=== PATIENT | male | born 1970 | race Caucasian/White ===

== ENCOUNTER → 2018-09-24 13:21 | Outpatient (CLI) | payer MEDICAID, SELFPAY ==
[2018-09-24 14:31] LABS: Basophils # 0.1 K/mm3 (0-0.2); Eosinophils # 0.1 K/mm3 (0.0-0.4); Monocytes # 0.4 K/mm3 (0.1-1.0); Monocytes % 5.8 % (1.7-9.3)
[2018-09-24 14:37] LABS: Basophils % 0.9 % (0.1-2.0); Eosinophils % 1.7 % (0.1-12.0); Lymphocytes # 1.7 K/mm3 (0.7-4.5); Lymphocytes % 22.5 K/mm3 (10-50); Mean Corpuscular HGB Conc 30.6 g/dL (31.8-35.4); Mean Corpuscular Hemoglobin 28.6 pg (27.0-31.2); Mean Corpuscular Volume 93.4 fl (80-94); Mean Platelet Volume 8.3 fl (7.4-10.4); Neutrophils # 5.2 K/mm3 (1.8-7.8); Neutrophils % 69.2 % (37.0-80.0); Platelet Count 239 K/mm3 (142-424); Red Blood Count 6.63 M/mm3 (4.60-6.20); Red Cell Distribution Width 14.8 % (11.5-17.5); White Blood Count 7.6 K/mm3 (4.8-10.8)
[2018-09-24 14:43] LABS: Alanine Aminotransferase 21 U/L (12-78); Albumin Level 3.9 gm/dL (3.4-5.0); Albumin/Globulin Ratio 1.2 (1.1-1.8); Alkaline Phosphatase 98 U/L (46-116); Anion Gap 11.5 mEq/L (5-15); Aspartate Amino Transferase 19 U/L (15-37); Bilirubin,Total 0.4 mg/dL (0.2-1.0); Blood Urea Nitrogen 8 mg/dL (7-18); Calcium 8.7 mg/dL (8.5-10.1); Carbon Dioxide 31 mmol/L (21.0-32.0); Chloride 107 mmol/L (98-107); Cholesterol 112 mg/dL (140-200); Creatinine,Serum 0.92 mg/dL (0.70-1.30); Estimated Glomerular Filt Rate 88 ml/min (>60); GFR (African American) 106 ML/MIN (>60); Globulin 3.2 gm/dl (1.3-3.2); Glucose 95 mg/dL (74-106); Potassium 4.5 mmoL/L (3.5-5.1); Sodium 145 mmol/L (136-145); Total Protein,Serum 7.1 gm/dL (6.4-8.2); Triglycerides 78 mg/dL (30-200); VLDL Cholesterol 16 mg/dL (0-40)
[2018-09-24 15:06] LABS: Hemoglobin 18.9 g/dL (14.1-18.0)
[2018-09-24 15:13] LABS: Chol/HDL Ratio 2.7 (1-3.5); Free T4 (Free Thyroxine) 1.09 ng/dl (0.76-1.46); HDL Cholesterol 42 mg/dL (27-67); LDL Cholesterol 54 mg/dL (0-130); Thyroid Stimulating Hormone 1.43 uIU/ml (0.358-3.740)
[2018-09-24 15:42] LABS: Hematocrit 61.9 % (42.0-52.0)
[2018-09-25 10:12] LABS: Hep A Ab, IgM Negative (Negative); Hepatitis B Core Antibody IgM Negative (Negative); Hepatitis B Surface Antigen Negative (Negative)
[2018-09-25 18:44] LABS: Hepatitis C Antibody <0.1 s/co ratio (0.0-0.9)
== END ==
PROVIDERS: PCP Emergency Medicine; Visit Provider Emergency Medicine
DX: R25.1 Tremor, unspecified (principal)
CPT/HCPCS: 80053; 80061; 80074; 84439; 84443; 85025

== ENCOUNTER → 2018-09-27 14:29 | Outpatient (CLI) | payer MEDICAID, SELFPAY ==
[2018-09-27 15:07] LABS: Basophils # 0.1 K/mm3 (0-0.2); Basophils % 0.6 % (0.1-2.0); Eosinophils # 0.1 K/mm3 (0.0-0.4); Eosinophils % 0.7 % (0.1-12.0); Hematocrit 57.2 % (42.0-52.0); Hemoglobin 17.8 g/dL (14.1-18.0); Lymphocytes # 2.1 K/mm3 (0.7-4.5); Lymphocytes % 25.1 K/mm3 (10-50); Mean Corpuscular HGB Conc 31.2 g/dL (31.8-35.4); Mean Corpuscular Hemoglobin 28.4 pg (27.0-31.2); Mean Corpuscular Volume 91.2 fl (80-94); Mean Platelet Volume 7.2 fl (7.4-10.4); Monocytes # 0.4 K/mm3 (0.1-1.0); Monocytes % 5.2 % (1.7-9.3); Neutrophils # 5.6 K/mm3 (1.8-7.8); Neutrophils % 68.4 % (37.0-80.0); Platelet Count 227 K/mm3 (142-424); Red Blood Count 6.27 M/mm3 (4.60-6.20); Red Cell Distribution Width 14.6 % (11.5-17.5); White Blood Count 8.2 K/mm3 (4.8-10.8)
== END ==
PROVIDERS: Visit Provider Surgery
DX: K46.9 Unspecified abdominal hernia without obstruction or gangrene (principal)
CPT/HCPCS: 36415; 85025; 93005

== ENCOUNTER → 2019-01-13 08:45 | Outpatient (CLI) | payer MEDICAID, SELFPAY ==
--- NOTE | 2019-01-13 08:47 | MR_ITS ---
MR head/brain wo/w con HISTORY: Intermittent blurred vision with memory loss and tremor, history of skull fracture with intracranial hemorrhage ITS.REASON: tremor, shaking ORDERING PHYSICIAN: Rhiannon Mxion MD PATIENT AGE: 49 years Comparison: None TECHNIQUE: Standard multiplanar multiecho sequences are performed without and with gadolinium enhancement. 17 mL of ProHance given IV. FINDINGS: There is a caval septum lucidum is a normal variant. Encephalomalacic changes are present in the right occipital lobe and the temporal occipital junction. No midline shift, mass effect, intracranial hemorrhage, or hydrocephalus is evident. There is normal dai-white matter differentiation. No enhancing lesions are evident. The cerebellopontine angle, cerebellum, and brainstem are unremarkable. No pituitary mass. Optic chiasm, corpus callosum, and craniocervical junction have an unremarkable appearance. Upper cervical cord is unremarkable. The hippocampal GI right are unremarkable in the temporal horns are symmetric. No mastoid effusion or sinus air-fluid level. No acute calvarial abnormality. IMPRESSION: 1. No acute intracranial findings. 2. Encephalomalacia change in the right occipital lobe and occipital temporal region.
--- NOTE | 2019-01-13 09:42 | HMH.ITSHM ---
Current Home Medications as stated by this patient Tyrone Costa or billing representative. []propranolol
== END ==
PROVIDERS: PCP Emergency Medicine; Visit Provider Specialist
DX: D75.1 Secondary polycythemia (principal); R25.1 Tremor, unspecified; S06.9X1S Unspecified intracranial injury with loss of consciousness of 30 minutes or less, sequela
CPT/HCPCS: 70553; A9576

== ENCOUNTER → 2019-01-20 10:47 | Outpatient (CLI) | payer MEDICAID, SELFPAY ==
--- NOTE | 2019-01-20 10:53 | XR_ITS ---
XR chest 2V HISTORY: Shortness of breath, cough, smoker ITS.REASON: H/O TOBACCO USE,SOB ORDERING PHYSICIAN: Catarina Dunne MD PATIENT AGE: 49 years COMPARISON: None FINDINGS: The cardiomediastinal silhouette and pulmonary vascularity are within normal limits. The lungs are clear without infiltrates, suspicious nodules, or pleural effusions. There is calcified granuloma in the right lower lobe. Degenerative changes are present in the midthoracic spine. IMPRESSION: No acute finding
[2019-01-20 11:12] LABS: Microscopic, Urine URINE MICROSCOPIC (MICROSCOPIC)
[2019-01-20 11:32] LABS: Appearance,Urine CLEAR (Clear); Bilirubin,Urine Negative (Negative); Blood, Urine Negative (Negative); Color,Urine YELLOW (Yellow); Glucose,Urine (UA) Negative (Negative); Ketones,Urine Negative (Negative); Leukocyte Esterase,Urine Negative (Negative); Nitrate,Urine Negative (Negative); PH,Urine 5.5 (5.0-8.5); Protein,Urine Negative (Negative); Specific Gravity, Urine <= 1.005 (1.005-1.030); Urobilinogen,Urine 0.2 EU/dl (0.2)
[2019-01-20 11:35] LABS: Basophils # 0.1 K/mm3 (0-0.2); Basophils % 1.2 % (0.1-2.0); Eosinophils # 0.2 K/mm3 (0.0-0.4); Eosinophils % 2.3 % (0.1-12.0); Hematocrit 56.1 % (42.0-52.0); Lymphocytes # 2.4 K/mm3 (0.7-4.5); Lymphocytes % 32.4 % (10-50); Mean Corpuscular HGB Conc 32.2 g/dL (31.8-35.4); Mean Corpuscular Hemoglobin 29.8 pg (27.0-31.2); Mean Corpuscular Volume 92.7 fl (80-94); Mean Platelet Volume 6.8 fl (7.4-10.4); Monocytes # 0.6 K/mm3 (0.1-1.0); Monocytes % 7.7 % (1.7-9.3); Neutrophils # 4.2 K/mm3 (1.8-7.8); Neutrophils % 56.5 % (37.0-80.0); Platelet Count 242 K/mm3 (142-424); Red Blood Count 6.05 M/mm3 (4.60-6.20); Red Cell Distribution Width 14.8 % (11.5-17.5); White Blood Count 7.4 K/mm3 (4.8-10.8)
[2019-01-20 11:43] LABS: Bacteria,Urine Trace /lpf; Squamous Epithelial Cell,Urine Occasional #/hpf (0-5)
[2019-01-20 12:41] LABS: Alanine Aminotransferase 24 U/L (12-78); Albumin Level 3.8 gm/dL (3.4-5.0); Albumin/Globulin Ratio 1.2 (1.1-1.8); Alkaline Phosphatase 101 U/L (46-116); Anion Gap 12.5 mEq/L (5-15); Aspartate Amino Transferase 15 U/L (15-37); Bilirubin,Total 0.5 mg/dL (0.2-1.0); Blood Urea Nitrogen 15 mg/dL (7-18); Calcium 8.9 mg/dL (8.5-10.1); Carbon Dioxide 30 mmol/L (21.0-32.0); Chloride 105 mmol/L (98-107); Creatinine,Serum 0.99 mg/dL (0.70-1.30); Estimated Glomerular Filt Rate 80 ml/min (>60); GFR (African American) 97 ML/MIN (>60); Globulin 3.1 gm/dl (1.3-3.2); Glucose 102 mg/dL (74-106); Potassium 4.5 mmoL/L (3.5-5.1); Sodium 143 mmol/L (136-145); Total Protein,Serum 6.9 gm/dL (6.4-8.2)
[2019-01-21 12:36] LABS: Ceruloplasmin 20.1 mg/dL (16.0-31.0); Vitamin B12 319 pg/mL (232-1245)
[2019-01-21 17:40] LABS: Erythropoietin 9.8 mIU/mL (2.6-18.5)
== END ==
PROVIDERS: PCP Emergency Medicine; Referring Provider Specialist; Visit Provider Internal Medicine Medical Oncology
DX: D75.1 Secondary polycythemia (principal); R39.89 Other symptoms and signs involving the genitourinary system; R25.1 Tremor, unspecified; S06.9X1S Unspecified intracranial injury with loss of consciousness of 30 minutes or less, sequela
CPT/HCPCS: 36415; 71046; 80053; 81001; 81270; 82390; 82607; 82668; 85025

== ENCOUNTER → 2020-01-11 17:56 | Outpatient (CLI) | payer OTHER, SELFPAY ==
[2020-01-11 18:22] LABS: Basophils # 0.1 K/mm3 (0-0.2); Basophils % 0.7 % (0.1-2.0); Eosinophils # 0.1 K/mm3 (0.0-0.4); Eosinophils % 1.5 % (0.1-12.0); Hematocrit 54.8 % (42.0-52.0); Hemoglobin 17.5 g/dL (14.1-18.0); Lymphocytes # 2.8 K/mm3 (0.7-4.5); Lymphocytes % 29.8 % (10-50); Mean Corpuscular HGB Conc 31.9 g/dL (31.8-35.4); Mean Corpuscular Hemoglobin 28.5 pg (27.0-31.2); Mean Corpuscular Volume 89.3 fl (80-94); Mean Platelet Volume 8.6 fl (7.4-10.4); Monocytes # 0.6 K/mm3 (0.1-1.0); Monocytes % 6.6 % (1.7-9.3); Neutrophils # 5.7 K/mm3 (1.8-7.8); Neutrophils % 61.4 % (37.0-80.0); Platelet Count 255 K/mm3 (142-424); Red Blood Count 6.13 M/mm3 (4.60-6.20); Red Cell Distribution Width 14.6 % (11.5-17.5); White Blood Count 9.3 K/mm3 (4.8-10.8)
[2020-01-11 18:37] LABS: Chloride 105 mmol/L (98-107)
[2020-01-11 18:38] LABS: Potassium 4.4 mmoL/L (3.5-5.1); Sodium 140 mmol/L (136-145)
[2020-01-11 18:40] LABS: Alanine Aminotransferase 23 U/L (12-78); Alkaline Phosphatase 55 U/L (38-126); Aspartate Amino Transferase 36 U/L (17-59); Bilirubin,Total 0.3 mg/dl (0.2-1.3); Blood Urea Nitrogen 13 mg/dl (9-20); Estimated Glomerular Filt Rate 90 ml/min (>60); GFR (African American) 109 ML/MIN (>60)
[2020-01-11 18:41] LABS: Albumin Level 4.2 g/dl (3.5-5.0); Albumin/Globulin Ratio 1.7 (1.1-1.8); Anion Gap 13.4 mEq/L (5-15); Calcium 9.3 mg/dl (8.4-10.2); Carbon Dioxide 26 mmol/L (22.0-30.0); Chol/HDL Ratio 2.3 (1-3.5); Cholesterol 101 mg/dl (140-200); Globulin 2.5 g/dL (1.3-3.2); Glucose 88 mg/dl (74-100); HDL Cholesterol 44 mg/dl (40-60); Total Protein,Serum 6.7 g/dl (6.3-8.2); Triglycerides 91 mg/dl (30-150); VLDL Cholesterol 18 mg/dL (0-40)
[2020-01-11 18:52] LABS: Direct LDL Cholesterol 34.87 mg/dL (100-129)
[2020-01-11 18:58] LABS: Free T4 (Free Thyroxine) 1.24 ng/dl (0.78-2.19)
[2020-01-11 19:12] LABS: Thyroid Stimulating Hormone 2.35 uIU/mL (0.465-4.68)
[2020-01-11 21:22] LABS: Erythrocyte Sedimentation Rate 12 mm/hr (0-15)
[2020-01-13 12:02] LABS: Vitamin D 25 Hydroxy 30.8 ng/mL (30.0-100.0)
== END ==
PROVIDERS: Visit Provider Emergency Medicine
DX: R53.83 Other fatigue (principal)
CPT/HCPCS: 80053; 80061; 82652; 84439; 84443; 85025; 85651

== ENCOUNTER → 2021-08-20 17:49 | Outpatient (CLI) | payer OTHER, SELFPAY ==
[2021-08-20 18:33] LABS: Basophils # 0.1 K/mm3 (0-0.2); Eosinophils # 0.2 K/mm3 (0.0-0.4); Eosinophils % 2.4 % (0.1-12.0); Monocytes # 0.5 K/mm3 (0.1-1.0)
[2021-08-20 18:37] LABS: Alanine Aminotransferase 29 U/L (12-78); Albumin Level 4.3 g/dl (3.5-5.0); Albumin/Globulin Ratio 1.6 (1.1-1.8); Alkaline Phosphatase 76 U/L (38-126); Anion Gap 12.7 mEq/L (5-15); Aspartate Amino Transferase 30 U/L (17-59); Bilirubin,Total 0.4 mg/dl (0.2-1.3); Blood Urea Nitrogen 10 mg/dl (9-20); Calcium 9.1 mg/dl (8.4-10.2); Carbon Dioxide 23 mmol/L (22.0-30.0); Chloride 108 mmol/L (98-107); Chol/HDL Ratio 2.8 (1-3.5); Cholesterol 131 mg/dl (140-200); Estimated Glomerular Filt Rate 119 ml/min (>60); GFR (African American) 144 ML/MIN (>60); Globulin 2.7 g/dL (1.3-3.2); Glucose 95 mg/dl (74-100); HDL Cholesterol 47 mg/dl (40-60); Potassium 4.7 mmoL/L (3.5-5.1); Sodium 139 mmol/L (136-145); Triglycerides 86 mg/dl (30-150); VLDL Cholesterol 17 mg/dL (0-40)
[2021-08-20 18:48] LABS: Basophils % 1.2 % (0.1-2.0); Direct LDL Cholesterol 47.75 mg/dL (100-129); Hematocrit 58.1 % (42.0-52.0); Lymphocytes # 2.1 K/mm3 (0.7-4.5); Lymphocytes % 26.4 % (10-50); Mean Corpuscular HGB Conc 31.6 g/dL (31.8-35.4); Mean Corpuscular Hemoglobin 29.1 pg (27.0-31.2); Mean Corpuscular Volume 92.1 fl (80-94); Monocytes % 6.2 % (1.7-9.3); Neutrophils % 63.7 % (37.0-80.0); Platelet Count 314 K/mm3 (142-424); Red Blood Count 6.31 M/mm3 (4.60-6.20); Red Cell Distribution Width 15.3 % (11.5-17.5); White Blood Count 7.8 K/mm3 (4.8-10.8)
[2021-08-20 18:54] LABS: 25-OH Vitamin D, Total 52.6 ng/mL (30-100)
[2021-08-20 19:02] LABS: Hemoglobin 18.4 g/dL (14.1-18.0)
[2021-08-20 19:29] LABS: Free T4 (Free Thyroxine) 1.07 ng/dl (0.78-2.19)
[2021-08-20 20:16] LABS: Erythrocyte Sedimentation Rate 1 mm/hr (0-20)
[2021-08-22 09:19] LABS: HIV Screen 4th Generation wRfx Non Reactive (Non Reactive)
[2021-08-22 11:12] LABS: Hep A Ab, IgM Negative (Negative); Hep A Ab, Total Positive (Negative); Hep B Core Ab, Total Negative (Negative); Hep B Surface Ab, Qual Non Reactive (.); Hepatitis B Surface Antigen Negative (Negative); Hepatitis C Antibody <0.1 s/co ratio (0.0-0.9)
[2021-08-23 04:14] LABS: ALT (SGPT) P5P 30 IU/L (0-55); Alpha 2-Macroglobulins, Qn 161 mg/dL (110-276); Apolipoprotein A-1 129 mg/dL (101-178); Bilirubin, Total 0.3 mg/dL (0.0-1.2); GGT 21 IU/L (0-65); Haptoglobin 193 mg/dL (29-370); Necroinflammat Activity Grade A0-No activity (.); Necroinflammat Activity Score 0.11 (0.00-0.17)
== END ==
PROVIDERS: Visit Provider Emergency Medicine
DX: B15.9 Hepatitis A without hepatic coma (principal); Z11.4 Encounter for screening for human immunodeficiency virus [HIV]; R53.83 Other fatigue; E55.9 Vitamin D deficiency, unspecified
CPT/HCPCS: 80053; 80061; 81596; 82306; 84439; 84443; 85025; 85651; 86703; 86704; 86706; 86708; 87340; 87380; 87522; G0432

== ENCOUNTER → 2021-09-06 09:08 | Outpatient (CLI) | payer OTHER, SELFPAY ==
--- NOTE | 2021-09-06 09:15 | XR_ITS ---
PROCEDURE: XR SHOULDER RT MIN 2V CLINICAL INDICATION: RT shoulder pain COMPARISON: No exams were available for comparison FINDINGS: No fracture or dislocation. No lytic or blastic change. There is normal mineralization. There are osteoarthritic changes at the AC joint with a small spur projecting along the inferior surface of the distal acromion. Osteoarthritic changes are also present at the glenohumeral joint with high-riding humeral head and subacromial stenosis Other findings:None. IMPRESSION: Osteoarthritis with subacromial stenosis Dictated by: Pascual Oliver MD 09/06/2021 13:40 Pascual Oliver MD in [place] 09/06/2021 13:40
== END ==
PROVIDERS: PCP Emergency Medicine; Visit Provider Orthopaedic Surgery
DX: M25.511 Pain in right shoulder (principal)
CPT/HCPCS: 73030

== ENCOUNTER → 2021-10-09 16:00 | Outpatient (CLI) | payer OTHER, SELFPAY ==
--- NOTE | 2021-10-09 16:07 | MR_ITS ---
PROCEDURE: MR CERVICAL SPINE WO CON CLINICAL INDICATION: neck pain Neck pain and right arm pain COMPARISON: No exams were available for comparison TECHNIQUE: Standard multiplanar multiecho sequences are performed without contrast. 3-D MIP and myelographic images are also rendered and reviewed FINDINGS: There is normal alignment. Craniocervical junction has an unremarkable appearance. There is straightening of the cervical lordosis which could be due to patient positioning or muscle spasm. C2-C3: Degenerative disc disease with right-sided uncovertebral hypertrophy with right lateral recess and moderate right foraminal narrowing. C3-C4: Degenerative disc disease with small right paracentral and left paracentral disc osteophyte complexes at the uncovertebral region causing moderate bilateral lateral recess narrowing and severe bilateral foraminal narrowing. Canal stenosis of 9 mm is present at this level with minimal impingement upon the cord anteriorly. C4-C5: Degenerative disc disease with endplate hypertrophic changes with broad-based disc osteophyte complex and small right paracentral/foraminal disc osteophyte complex at the uncovertebral region. There is resultant severe bilateral lateral recess narrowing slightly greater on the right secondary to the disc osteophyte complex. There is moderate bilateral foraminal narrowing and canal stenosis of 9 mm. There is minimal impingement upon the cord anteriorly C5-C6: Degenerative disc disease with a broad based central and left paracentral and foraminal and lateral disc osteophyte complex causing severe left-sided lateral recess narrowing and severe left foraminal narrowing with canal stenosis of 8 mm centrally and greater left laterally. [id number] impingement upon the cord anteriorly and on the left. Prominent anterior osteophytes are present also at this level. C6-C7: Degenerative disc disease with bulging disc with moderate to severe canal stenosis of 7 mm. There is impingement upon the cord anteriorly. There is moderate bilateral lateral recess narrowing and severe bilateral foraminal narrowing. C7-T1: Small central and right paracentral disc protrusion with canal stenosis of 9 mm. Mild bilateral foraminal narrowing. Type 1 endplate changes are present the at C4-C5 and C6-C7. There is increased T2 signal involving the pedicle on the left at C6 and C7 and the left aspect of the vertebral bodies at this area indicating bone marrow edema which may be related to the underlying discogenic disease. IMPRESSION: Abnormal MRI of the cervical spine with multilevel cervical spondylosis with resultant canal stenosis, lateral recess, and foraminal narrowing. Please see above for detailed description at each level. Dictated by: Pascual Oliver MD 10/11/2021 07:52 Pascual Oliver MD in [place] 10/11/2021 07:52
== END ==
PROVIDERS: PCP Emergency Medicine; Visit Provider Emergency Medicine
DX: M54.12 Radiculopathy, cervical region (principal)
CPT/HCPCS: 72141; 76376

== ENCOUNTER → 2021-11-04 18:47 | Outpatient (CLI) | payer OTHER, SELFPAY ==
[2021-11-04 18:50] LABS: Coronavirus 19, PCR Not Detected (NotDetected); Influenza A, PCR Not Detected (NotDetected); Influenza B, PCR Not Detected (NotDetected)
== END ==
PROVIDERS: Visit Provider Emergency Medicine
DX: Z20.822 Contact with and (suspected) exposure to COVID-19 (principal); J34.89 Other specified disorders of nose and nasal sinuses; R51.9 Headache, unspecified
CPT/HCPCS: C9803; U0003; U0005

== ENCOUNTER → 2022-02-13 14:06 | Outpatient (POV) | payer OTHER, SELFPAY ==
[2022-02-13 14:49] VITALS: BP 119/75; PULSE 63; RESP 18; TEMP 36.6; O2SAT 98; BMI 25.7
--- NOTE | 2022-02-13 15:48 | HMH.PAINSOAP ---
[facility] Pain Management SOAP Note Subjective:: Patient is a pleasant 52-year-old male who is here for medication refill and follow-up. Patient is currently being treated for degenerative disc disease of the lumbar spine with lumbar radiculopathy symptoms. Patient is being managed with Lyrica 75 mg 4 times a day and Oakfield 5 mg 4 times a day. Patient denies any side effects from the medications. Patient denies any changes to the location and type of pain. Patient states that this is adequately helping manage their pain. Rates pain as 6 out of 10. [facility] number [id number] with an active morphine equivalent 20. Drug screens have been reviewed and appropriate. We also recently tried a [employer] spinal cord stimulator with the patient. After the 1 week trial, patient had no relief of symptoms. We took out his leads on February 03, 2022. Review of Systems: General: No recent weight changes, no fever, no sleep disturbances Respiratory: No cough, no shortness of air, no recurring pulmonary infections Cardiovascular/peripheral vascular: No chest pain, no palpitations, no edema, no shortness of breath Gastrointestinal: No new onset incontinence, normal bowel movements reported Genitourinary: No new onset incontinence Musculoskeletal: Low back pain Psychiatric: [Normal mood/affect] Neurological: [Denies weakness in extremities], [denies balance issues] Objective:: Physical Exam: General: Alert and oriented x3, no acute distress, pleasant and cooperative, [on room air] Lungs: Respirations even and unlabored, symmetrical chest expansion Eyes: PERRL Musculoskeletal: Flexion and extension of lumbar [spine] somewhat guarded secondary to pain, [antalgic gait noted] Neurological: Speech clear, no gross sensory deficit Assessment:: Degenerative disc disease of lumbar spine with lumbar radiculopathy symptoms Plan:: We will continue the patient's Lyrica 75 mg 4 times a day and Oakfield 5 mg 4 times a day. We will provide the patient with 1 month of refills. We would like to see the patient back in 1 month for follow-up and reevaluation of chronic pain syndrome. Patient has been advised of risks of oversedation with the prescribed medication. Narcan has been offered to the patient in the event of oversedation. Patient has been advised that a family member should also be educated regarding administration of Narcan. Patient has been instructed to contact the clinic with any concerns before the next appointment. Dr. Becerril has reviewed this note and agrees with this plan of care. This note was dictated using voice recognition software and make contain errors or omissions. [facility] History Medical History: Reports:: Depression, Hiatal Hernia, Migraine Denies:: Cancer, Diabetes Mellitus Type 1, Diabetes Mellitus Type 2, Internal Pacemaker, MRSA, Seizures *Have you ever received a pneumonia vaccine?: No *Have you received a flu vaccine this season?: No Other Medical History: Reports: Arthritis, Other. Denies: Blood Transfusion Reaction Laterality Cases: Right: Arthroscopy Shoulder, Other Other Surgeries: Yes: No Previous Surgery, Hernia Repair, Other (hand, rotator cuff). No: Pacemaker Amputation: No Fractures: Yes (FRACTURED SKULL WITH 2 BLOOD CLOTS IN BRAIN) - *Social History Smoking Status: Current every day smoker Tobacco Type: cigarettes # Packs/Day (cigarettes): 1 #Yrs smoked (if former smoker): 41 Alcohol Intake: current Alcohol Intake Frequency:: holidays/special occasions only Substance Use Type: marijuana *Occupational Status:: other Housing: house Household Members: friend(s) *Travel in the last 8 weeks: None - Psychiatric History Pschychiatric History:: Reports:: Depression Family Hx:: Asthma, Cancer, Heart Attack
--- NOTE | 2022-02-13 15:54 | HMH.PMCON ---
Assessment and Plan (1) Degenerative disc disease, cervical Status: Acute Category: Medical Code(s): M50.30 - Other cervical disc degeneration, unspecified cervical region (2) Cervical radiculopathy Status: Acute Category: Medical Code(s): M54.12 - Radiculopathy, cervical region (3) Rotator cuff tear arthropathy of right shoulder Status: Acute Category: Medical Code(s): M75.101 - Unspecified rotator cuff tear or rupture of right shoulder, not specified as traumatic; M12.811 - Other specific arthropathies, not elsewhere classified, right shoulder - Assessment and plan all Dx Assessment and Plan for all problems:: CLINICAL INDICATION: neck pain Neck pain and right arm pain COMPARISON: No exams were available for comparison TECHNIQUE: Standard multiplanar multiecho sequences are performed without contrast. 3-D MIP and myelographic images are also rendered and reviewed FINDINGS: There is normal alignment. Craniocervical junction has an unremarkable appearance. There is straightening of the cervical lordosis which could be due to patient positioning or muscle spasm. C2-C3: Degenerative disc disease with right-sided uncovertebral hypertrophy with right lateral recess and moderate right foraminal narrowing. C3-C4: Degenerative disc disease with small right paracentral and left paracentral disc osteophyte complexes at the uncovertebral region causing moderate bilateral lateral recess narrowing and severe bilateral foraminal narrowing. Canal stenosis of 9 mm is present at this level with minimal impingement upon the cord anteriorly. C4-C5: Degenerative disc disease with endplate hypertrophic changes with broad-based disc osteophyte complex and small right paracentral/foraminal disc osteophyte complex at the uncovertebral region. There is resultant severe bilateral lateral recess narrowing slightly greater on the right secondary to the disc osteophyte complex. There is moderate bilateral foraminal narrowing and canal stenosis of 9 mm. There is minimal impingement upon the cord anteriorly C5-C6: Degenerative disc disease with a broad based central and left paracentral and foraminal and lateral disc osteophyte complex causing severe left-sided lateral recess narrowing and severe left foraminal narrowing with canal stenosis of 8 mm centrally and greater left laterally. [id number] impingement upon the cord anteriorly and on the left. Prominent anterior osteophytes are present also at this level. C6-C7: Degenerative disc disease with bulging disc with moderate to severe canal stenosis of 7 mm. There is impingement upon the cord anteriorly. There is moderate bilateral lateral recess narrowing and severe bilateral foraminal narrowing. C7-T1: Small central and right paracentral disc protrusion with canal stenosis of 9 mm. Mild bilateral foraminal narrowing. Type 1 endplate changes are present the at C4-C5 and C6-C7. There is increased T2 signal involving the pedicle on the left at C6 and C7 and the left aspect of the vertebral bodies at this area indicating bone marrow edema which may be related to the underlying discogenic disease. IMPRESSION: Abnormal MRI of the cervical spine with multilevel cervical spondylosis with resultant canal stenosis, lateral recess, and foraminal narrowing. Please see above for detailed description at each level. Dictated by: Pascual Oliver MD 10/11/2021 07:52 Pascual Oliver MD in [place] 10/11/2021 07:52 Patient's MRI shows multiple level cervical spondylosis and degenerative disc changes resulting into mild to moderate canal stenosis. Patient is also being followed by neurology and have been referred to neurosurgery for further evaluation. Patient has been referred to us for pain management. Patient has tried and failed conservative therapies such as oral medication, physical therapy, at home exercises for greater than 6 weeks. We will poly
== END ==
PROVIDERS: Visit Provider Student in an Organized Health Care Education/Training Program
DX: M50.10 Cervical disc disorder with radiculopathy, unspecified cervical region (principal); M75.101 Unspecified rotator cuff tear or rupture of right shoulder, not specified as traumatic
CPT/HCPCS: 99202; G0463

== ENCOUNTER 2022-02-28 11:59 | Day surgery (SDC) | payer OTHER, SELFPAY ==
[2022-02-28 12:24] VITALS: BP 125/77; BP 135/91; PULSE 74; PULSE 80; RESP 20; TEMP 36.6; O2SAT 99; BMI 25.9
--- NOTE | 2022-02-28 12:37 | HMH.PMPROC ---
- Procedure Date: 02/28/22 Time: 12:37 Anesthesiologist:: Tim Obrien CRNA Complications:: None Pre-procedure Diagnosis:: Degenerative disc disease cervical spine multilevels with radiculopathy to right shoulder. Post-procedure Diagnosis:: Same Indications for Procedure:: This patient is a pleasant 52-year-old male who has come to our clinic for chronic neck pain as well as upper right extremity pain. He has not had any cervical steroid injection in the past. He is status post rotator cuff repair in the right shoulder. This was done several years ago. He is continuing to have pain in the neck as well as the right shoulder. Procedure Details:: Procedure:Cervical epidural steroid injection Informed consent was obtained and the risks and benefits of the procedure were explained to the patient. The patient was taken to the procedure room and noninvasive monitors placed, including noninvasive blood pressure cuff and pulse oximeter. The neck was prepped using Betadine as a cleansing solution. The C6-C7 interspace was palpated. The skin and subcutaneous tissues were anesthetized using lidocaine 1.5% and a 25-gauge needle. After this an 18-gauge Touhy epidural needle was placed into the C6-C7 interspace and advanced using loss of resistance to air until the epidural space was encountered. After confirmation of needle placement in the epidural space, a solution containing lidocaine 1.5%, 4 mL and Depo-Medrol 80 mg was incrementally injected into the cervical epidural space.~ The patient tolerated the procedure well with no complications. The patient was observed in the Pain Clinic and then discharged home neurologically intact. Plan and Disposition:: Patient was discharged 30 minutes post procedure. No incident. No difficulty. He will return to see us in the clinic.
[2022-02-28 12:40] VITALS: BP 121/92; PULSE 65; RESP 18; O2SAT 98
== END 2022-02-28 12:41 | disposition home or self-care (01) ==
LOC: SC.PAINP 12:02
PROVIDERS: PCP Emergency Medicine; Visit Provider Nurse Anesthetist, Certified Registered
DX: M50.120 Mid-cervical disc disorder, unspecified level (principal); F32.A Depression, unspecified; G43.909 Migraine, unspecified, not intractable, without status migrainosus; M19.90 Unspecified osteoarthritis, unspecified site; Z79.899 Other long term (current) drug therapy
CPT/HCPCS: 62321; J1040

== ENCOUNTER → 2022-03-27 10:51 | Outpatient (POV) | payer OTHER, SELFPAY ==
[2022-03-27 11:57] VITALS: BP 142/73; PULSE 71; RESP 18; TEMP 36.1; O2SAT 96; BMI 25.7
--- NOTE | 2022-03-27 12:04 | HMH.PAINSOAP ---
[facility] Pain Management SOAP Note Subjective:: Patient is a pleasant 53-year-old male who presents today for follow-up after a cervical epidural steroid injection at C6-C7 on February 28, 2022. Patient is currently being managed for degenerative disc disease of the cervical spine and multiple levels with cervical radiculopathy symptoms, right shoulder pain, cervical facet arthropathy, cervical spinal canal stenosis. After the procedure, patient states that he had worsening symptoms for about a week. He also had a lot of pain during the injections. Today, patient states that he still have significant cervical pain that radiates to bilateral upper extremities. He is still being followed by Ortho for his right shoulder. When we last saw this patient, we refer the patient for neurosurgery. He has an appointment with them in the next couple of weeks. He rates his pain today as 8 out of 10. Review of Systems: General: No recent weight changes, no fever, no sleep disturbances Respiratory: No cough, no shortness of air, no recurring pulmonary infections Cardiovascular/peripheral vascular: No chest pain, no palpitations, no edema, no shortness of breath Gastrointestinal: No new onset incontinence, normal bowel movements reported Genitourinary: No new onset incontinence Musculoskeletal: Neck pain, right shoulder pain Psychiatric: [Normal mood/affect] Neurological: [Denies weakness in extremities], [denies balance issues] Objective:: Physical Exam: General: Alert and oriented x3, no acute distress, pleasant and cooperative Lungs: Respirations even and unlabored, symmetrical chest expansion Eyes: PERRL Musculoskeletal: Flexion and extension of cervical [spine] somewhat guarded secondary to pain, [antalgic gait noted]; limited range of motion of the right shoulder secondary to pain Neurological: Speech clear, no gross sensory deficit Assessment:: Degenerative disc disease of the cervical spine with cervical radiculopathy symptoms, cervical facet arthropathy, cervical spinal stenosis Plan:: Patient had minimal relief after the cervical epidural steroid injection. We will schedule the patient for a second cervical epidural steroid injection at C6-C7. Risks and benefits of the procedure have been explained to the patient. Patient would like to proceed with the procedure. Before his injections, I will write the patient hydroxyzine 50 mg 2 tablets that he can take 1 the night before the procedure and 1 in the morning of the procedure Patient has not any blood thinners. I urged the patient to keep his neurosurgery appointment. Patient has significant issues in his spine. Patient states that he will try his best to make it to his neurosurgery appointment. Patient has been instructed to contact the clinic with any concerns before the next appointment. Dr. Becerril has reviewed this note and agrees with this plan of care. This note was dictated using voice recognition software and make contain errors or omissions. [facility] History Medical History: Reports:: Depression, Hiatal Hernia, Migraine Denies:: Cancer, Diabetes Mellitus Type 1, Diabetes Mellitus Type 2, Internal Pacemaker, MRSA, Seizures *Have you ever received a pneumonia vaccine?: No *Have you received a flu vaccine this season?: Yes Other Medical History: Reports: Arthritis, Other. Denies: Blood Transfusion Reaction Laterality Cases: Right: Arthroscopy Shoulder, Other Other Surgeries: Yes: No Previous Surgery, Hernia Repair, Other (hand, rotator cuff). No: Pacemaker Amputation: No Fractures: Yes (FRACTURED SKULL WITH 2 BLOOD CLOTS IN BRAIN) - *Social History Smoking Status: Current every day smoker Tobacco Type: cigarettes # Packs/Day (cigarettes): 1 #Yrs smoked (if former smoker): 41 Alcohol Intake: current Alcohol Intake Frequency:: holidays/special occasions only Substance Use Type: marijuana *Occupational Status:: employed Housing: house Household Members: friend(s) *Travel in the [facility]
== END ==
PROVIDERS: Visit Provider Student in an Organized Health Care Education/Training Program
DX: M50.10 Cervical disc disorder with radiculopathy, unspecified cervical region (principal); M48.02 Spinal stenosis, cervical region; M47.892 Other spondylosis, cervical region
CPT/HCPCS: 99212; G0463

== ENCOUNTER 2022-04-18 09:52 | Day surgery (SDC) | payer OTHER, SELFPAY ==
[2022-04-18 10:04] VITALS: BP 119/79; PULSE 74; RESP 20; TEMP 36.6; O2SAT 98; BMI 25.1
[2022-04-18 10:28] VITALS: BP 118/67; PULSE 77; RESP 18; O2SAT 96
[2022-04-18 10:29] VITALS: BP 116/70; PULSE 76; RESP 18; O2SAT 96
--- NOTE | 2022-04-18 10:40 | HMH.PMPROC ---
- Procedure Date: 04/18/22 Time: 10:41 Anesthesiologist:: Emery Becerril MD Complications:: None Pre-procedure Diagnosis:: Degenerative disc disease of cervical spine with cervical radiculopathy and cervical spinal stenosis Post-procedure Diagnosis:: Same Indications for Procedure:: Patient is a pleasant 53-year-old white male who we have been treating for neck pain with cervical radicular symptoms. He did have a previous cervical epidural steroid injection in February which did not give him much relief of his pain symptoms. He does have an appointment with neurosurgery in the next few weeks. We will do a repeat cervical epidural steroid injection today to see if this will give him better relief of his pain symptoms. Procedure Details:: Cervical epidural steroid injection under fluoroscopy Informed consent was obtained and the risks and benefits of the procedure was explained to the patient. The patient was taken to the procedure room placed prone on the procedure table. The neck was prepped using ChloraPrep. The skin and subcutaneous tissues were anesthetized using lidocaine. I placed a 18-gauge epidural needle into the C5-C6 interspace and advanced using [id number] to air and fluoroscopic guidance. After confirmation of needle placement in the epidural space with dye, I injected 3 mL's lidocaine 1.5% and Depo-Medrol 80 mg. The patient tolerated the procedure well with no complications. Plan and Disposition:: We will follow-up with him in 2 weeks. Will reevaluate symptoms at that time. We will also follow-up on his appointment with neurosurgery.
[2022-04-18 10:51] VITALS: BP 127/79; PULSE 66; RESP 20; O2SAT 97
== END 2022-04-18 10:52 | disposition home or self-care (01) ==
LOC: SC.PAINP 09:53
PROVIDERS: PCP Emergency Medicine; Visit Provider Anesthesiology
DX: M50.122 Cervical disc disorder at C5-C6 level with radiculopathy (principal); M48.02 Spinal stenosis, cervical region; F32.A Depression, unspecified; G43.909 Migraine, unspecified, not intractable, without status migrainosus; M19.90 Unspecified osteoarthritis, unspecified site; Z72.0 Tobacco use; F12.90 Cannabis use, unspecified, uncomplicated
CPT/HCPCS: 62321; J1040; Q9966

== ENCOUNTER → 2022-05-05 11:10 | Outpatient (POV) | payer OTHER, SELFPAY ==
[2022-05-05 12:01] VITALS: BP 113/77; PULSE 68; RESP 18; TEMP 36.4; O2SAT 98; BMI 25.1
--- NOTE | 2022-05-05 12:50 | HMH.PAINSOAP ---
[facility] Pain Management SOAP Note Subjective:: Patient is a pleasant 53-year-old male who presents today for follow-up after a cervical epidural steroid injection on April 18, 2022. Patient is current being treated for degenerative disc disease of the cervical spine, cervical radiculopathy, cervical spinal stenosis. After the procedure, patient had significant relief for a few hours but states that his pain got worse after 24 hours. Pain is worse with cervical flexion, extension, and rotation. This is the patient's second cervical epidural steroid injection that provided 70-80% for less than 24 hours. He was supposed to see Neurosurgery but he had to reschedule it because of transportation issues. He is rescheduled to see them in May. Rates pain today as 810. He is prescribed Bison 5mg QID and Gabapentin 600mg TID by Dr. Reyes. Andrés [id number], MEQ 0. Review of Systems: General: No recent weight changes, no fever, no sleep disturbances Respiratory: No cough, no shortness of air, no recurring pulmonary infections Cardiovascular/peripheral vascular: No chest pain, no palpitations, no edema, no shortness of breath Gastrointestinal: No new onset incontinence, normal bowel movements reported Genitourinary: No new onset incontinence Musculoskeletal: Neck pain Psychiatric: [Normal mood/affect] Neurological: [Denies weakness in extremities], [denies balance issues] Objective:: Physical Exam: General: Alert and oriented x3, no acute distress, pleasant and cooperative Lungs: Respirations even and unlabored, symmetrical chest expansion Eyes: PERRL Musculoskeletal: Flexion and extension of cervical [spine] somewhat guarded secondary to pain, [antalgic gait noted] Neurological: Speech clear, no gross sensory deficit Assessment:: Degenerative disc disease of the cervical spine with cervical radiculopathy, cervical spinal stenosis Plan:: Patient had significant relief for less than 24 hours after 2 cervical epidural steroid injection. I discussed with the patient that he is a good candidate for spinal cord stimulator therapy. I provided the patient information regarding this procedure. He was supposed to see neurosurgery couple weeks ago but he had to reschedule this appointment because of transportation issues. He is scheduled to see them again in May. I would like to see the patient back at the beginning of June after his appointment with neurosurgery. I am also ordering an updated cervical MRI before his appointment with neurosurgery. Patient is to take this disc at his appointment. I will start the pt on Tizanidine 4mg TID to help with some of his neck pain. Patient has been instructed to contact the clinic with any concerns before the next appointment. Dr. Becerril has reviewed this note and agrees with this plan of care. This note was dictated using voice recognition software and make contain errors or omissions. [facility] History Medical History: Reports:: Depression, Hiatal Hernia, Hyperlipidemia, Hypertension, Migraine Denies:: Cancer, Diabetes Mellitus Type 1, Diabetes Mellitus Type 2, Internal Pacemaker, MRSA, Seizures *Have you ever received a pneumonia vaccine?: No *Have you received a flu vaccine this season?: No Other Medical History: Reports: Arthritis, Other. Denies: Blood Transfusion Reaction Laterality Cases: Right: Arthroscopy Shoulder, Other Other Surgeries: Yes: No Previous Surgery, Hernia Repair, Other (hand, rotator cuff). No: Pacemaker Amputation: No Fractures: Yes (FRACTURED SKULL WITH 2 BLOOD CLOTS IN BRAIN) - *Social History Smoking Status: Current every day smoker Tobacco Type: cigarettes # Packs/Day (cigarettes): 1 #Yrs smoked (if former smoker): 41 Alcohol Intake: never Alcohol Intake Frequency:: holidays/special occasions only Substance Use Type: marijuana *Occupational Status:: other Housing: house Household Members: friend(s) *Travel in the last 8 weeks: None - Psychiatric History Pschychiatric History:: Ritesh
== END ==
PROVIDERS: Visit Provider Student in an Organized Health Care Education/Training Program
DX: M50.10 Cervical disc disorder with radiculopathy, unspecified cervical region (principal); M48.02 Spinal stenosis, cervical region
CPT/HCPCS: 99212; G0463

== ENCOUNTER → 2022-05-08 11:29 | Outpatient (CLI) | payer OTHER, SELFPAY ==
--- NOTE | 2022-05-08 12:23 | MR_ITS ---
FINAL REPORT CLINICAL HISTORY: NECK PAIN neck pain , right sided shoulder and arm pain x 2 months headaches COMPARISON: October 09, 2021 FINDINGS: Multiplanar MR imaging of the cervical spine was performed without contrast. On the sagittal T2-weighted images, disc degeneration is seen throughout. There is straightening of the cervical spine. There is abnormal signal in the C6 vertebral body. This is worse than the prior exam of uncertain etiology, question reaction edema? There is no evidence of fracture. The vertebral alignment is normal. The cervical spinal cord has an unremarkable appearance without evidence of mass, edema or syrinx. No significant canal stenosis is identified. The cervicomedullary junction is normal. C2-3: An annular bulge is present. Bilateral uncovertebral osteophytes are present. There is moderate right neural foraminal narrowing. C3-4: A disc osteophyte complex is present. There is severe bilateral neural foraminal narrowing. C4-5: A disc osteophyte complex is present. There is severe bilateral neural foraminal narrowing. There is mild central canal stenosis with an AP diameter of the thecal sac of 8 mm. C5-6: A disc osteophyte complex is present. There is a left paracentral disc protrusion. There is severe left neural foraminal narrowing. There is a probable L6 nerve root impingement. C6-7: A disc osteophyte complex is present. There is moderate right and severe left neural foraminal narrowing. There is mild central canal stenosis with an AP diameter of the thecal sac of 8 mm. C7-T1: There is a right paracentral disc protrusion which indents the thecal sac. There is moderate right neural foraminal narrowing. IMPRESSION: Multilevel degenerative disc disease and spondylosis with areas of neural foraminal narrowing. Mild central canal stenosis at C4-5 and C6-7. Disc protrusions at C5-6 and C7-T1. Abnormal signal in the C6 vertebral body, worse. Question reaction edema? Reviewed, Interpreted and Dictated by Donta Galeano III, MD Transcribed by Candice Goldberg Authenticated and [facility]
== END ==
PROVIDERS: PCP Emergency Medicine; Visit Provider Student in an Organized Health Care Education/Training Program
DX: M54.2 Cervicalgia (principal)
CPT/HCPCS: 72141; 76376

== ENCOUNTER 2024-02-16 17:29 | Emergency (ER) | payer OTHER, SELFPAY ==
[2024-02-16 18:35] VITALS: BP 160/92; PULSE 85; RESP 18; TEMP 36.7; O2SAT 96; BMI 29.2
[2024-02-16 18:46] LABS: Coronavirus 19, PCR Not Detected (NotDetected); Influenza A, PCR Not Detected (NotDetected); Influenza B, PCR Not Detected (NotDetected)
--- NOTE | 2024-02-16 18:49 | EXP.UTC ---
Discharge Plan Disposition Patient Disposition: Home, Self-Care Condition: Good Prescriptions Prescriptions: New guaifenesin [Mucinex] 1,200 mg tablet extended release 12hr 1,200 mg PO Q12H PRN (Reason: cough/congestion) Qty: 20 0RF Referrals Follow up/Referrals: Mike Castro DO [Primary Care Provider] - See instructions Activity Restrictions/Add. Instructions Additional Instructions/Restrictions: *Monitor Temp, Over the counter Motrin or Tylenol as directed/as needed Tylenol every 4 hours and Motrin every 6 hours (as long as your family doctor has told you that you can take it) for fever or pain. and straight to ER if unable to lower temp less than 101.0 after medication given *Warm salt water gargles may help to soothe the throat *Throat Lozenges? *Warm fluids like tea with honey may help to soothe the throat? *Sleep elevated *Humidifier/Vaporizer Follow up IMMEDIATELY for new or worsening symptoms or no Noticeable improvement over the next 48-72 hours. 911 for difficulty breathing or swallowing You were tested for today for COVID19 your test result should be back in the next 24hours, you may check your results on the [facility] [employer] Health Portal Clinical Impressions Clinical Impression: Exposure to COVID-19 virus Instructions Patient Instructions: Cough, DI for COVID-19 (Suspected or Confirmed ) [place]charge ED Provider[place]ust[place] [facility] [place] General Stated complaint: cough,shortness of breath Mode of Arrival: Ambulatory Source of Information: Patient Limitations: No Limitations Time Seen by Provider: 02/16/24 18:49 Description of Symptoms (Recalled from Triage Doc. by RN): Pt's symptoms are productive cough, dry throat, and fatigued. He was exposed to covid. HEENT Symptoms (Recalled from RN notes): Yes Resp Symptoms (Recalled from RN notes): No Skin Symptoms (Recalled from RN notes): No MS Symptoms (Recalled from RN notes): No Functional Status (Recalled from RN notes): n/a History of Present Illness Provider Complaint: Patient states that he is an every day smoker, states that he has had a productive cough on and off for years States that he was recently around family that tested positive for COVID and he came in today to get tested States he his throat is a little scratchy and feeling achy Related Data Previous Rx's Medication Instructions Recorded guaifenesin 1,200 mg tablet, 1,200 mg PO Q12H PRN 02/16/24 extended release 12 hr (Mucinex) cough/congestion #20 tabs Allergies Allergy/AdvReac Type Severity Reaction Status Date / Time No Known Allergies Allergy Verified 02/16/24 18:49 Worker's Comp Is this a Worker's Comp case?: No PFSH PFS Disclaimer: The information contained in this section may have been updated after the patient was seen, as this information can be updated by other users. Social History Smoking Status: Current every day smoker tobacco type: cigarettes packs per day: 1 second hand exposure: Yes alcohol intake: never substance use type: marijuana current occupational status: other Travel in the last 8 weeks: None household members: friend(s) housing: house caffeine: Yes ROS Obtained: Yes All systems reviewed & no additional complaints except as documented and Yes Systems reviewed as appropriate & no additional complaints except as documented Constitutional Constitutional: Reports system reviewed and no additional complaints, except as documented and Reports as per HPI ENT Ears, Nose, Mouth, and Throat: Reports system reviewed and no additional complaints, except as documented, Reports as per HPI and Reports sore throat (dry throat) Cardiovascular Cardiovascular: Reports system reviewed and no additional complaints, except as documented and Reports as per HPI Respiratory Respiratory: Reports system reviewed and no additional complaints, except as documented, Reports as per HPI, Denies shortness of breath, Denies chest congestion, Reports cough, Denies pain on inspiration and Denies pain with cough Gastrointestinal Gastrointestingal: Reports system reviewed and no additional complaints, except as documented and as per HPI Physical Exam General General appearance: alert and in no apparent distress ENT ENT exam: Present mucous membranes moist Expanded ENT Exam Nose exam: Absent sinus tenderness Throat exam: Present normal inspection Respiratory Respiratory exam: Present normal lung sounds bilaterally; Absent respiratory distress or wheezes Cardiovascular Cardiovascular exam: Present regular rate, normal rhythm and normal heart sounds Neurological Exam Neurological exam: Present alert, oriented X3 and normal gait Medical Decision Making Andrés Inquiry Pt receiving controlled substance: No Andrés was queried for this patient: No Vital Signs: 02/16/24 18:35 Temperature 98.0 F Temperature Source Oral Pulse Rate [Right Radial] 85 Respiratory Rate 18 Blood Pressure [Right Arm] 160/92 H Blood Pressure Mean [Right Arm] 114 Blood Pressure Source [Right Arm] Automatic Cuff Blood Pressure Position [Right Arm] Sitting 02 Sat by Pulse Oximetry 96 Oxygen Delivery Method Room Air Orders (Tests/Meds): ORDERS Category Date Time Status Rapid PCR Covid and Flu A/B Stat Lab 02/16/24 18:40 Received
--- NOTE | 2024-02-16 18:50 | PC.NURSE ---
Sent up rapid to lab via tube
[2024-02-16 18:59] VITALS: BP 160/92; PULSE 85; RESP 18; TEMP 37.2; O2SAT 96
== END 2024-02-16 18:59 | disposition home or self-care (01) ==
PROVIDERS: Emergency Provider Nurse Practitioner; PCP Internal Medicine
DX: R05.9 Cough, unspecified (principal); R07.0 Pain in throat; F17.210 Nicotine dependence, cigarettes, uncomplicated; Z20.822 Contact with and (suspected) exposure to COVID-19
CPT/HCPCS: 87636; 99204; 99212; G0463

== ENCOUNTER 2025-06-01 13:48 | Emergency (ER) | payer OTHER, SELFPAY ==
--- NOTE | 2025-06-01 13:48 | ECG_ITS ---
APPROVED REPORT Exam: Resting ECG HR:68 bpm ECG Measurements Heart Rate 68 AXES OR 225 P 74 QRSd 134 QRS -85 QT 384 T 49 QTc 400 Conclusion Normal sinus rhythm 1 AV block Wide QRS w/ RBBB morphology No STEMI Electronically signed by : Michael Case, 06/02/2025 16:51:05
[2025-06-01 13:49] VITALS: BP 147/87; PULSE 69; RESP 18; TEMP 36.8; O2SAT 97; BMI 27.8
--- NOTE | 2025-06-01 14:24 | XR_ITS ---
FINAL REPORT CLINICAL HISTORY: SHORTNESS OF BREATH COMPARISON: 01/20/2019 FINDINGS: The heart size is normal. The mediastinum is normal. There is no focal infiltrate or edema. Mild chronic changes are seen at the lung bases. There are no pleural effusions. There is no pneumothorax. There is no osseous abnormality. IMPRESSION: No acute cardiopulmonary process Reviewed, Interpreted and Dictated by Abilio Bettencourt MD Transcribed by Lilly Singleton Authenticated and [facility]
[2025-06-01 14:33] LABS: Hematocrit 49.2 % (42.0-52.0); Hemoglobin 16.4 g/dL (14.1-18.0); Immature Granulocytes % 0.8 %; Mean Corpuscular HGB Conc 33.3 g/dL (31.8-35.4); Mean Corpuscular Hemoglobin 28.6 pg (27.0-31.2); Mean Corpuscular Volume 85.7 fl (80-94); Nucleated Red Blood Cells % 0 %; Platelet Count 282 K/mm3 (142-424); Red Blood Count 5.74 M/mm3 (4.60-6.20); Red Cell Distribution Width-SD 45.1 fL; White Blood Count 8.3 K/mm3 (4.8-10.8)
[2025-06-01 14:41] LABS: Albumin Level 4.0 g/dl (3.5-5.0); Chloride 101 mmol/L (98-107); Potassium 4.6 mmoL/L (3.5-5.1); Sodium 136 mmol/L (136-145)
[2025-06-01 14:44] LABS: Alanine Aminotransferase 42 U/L (12-78); Albumin/Globulin Ratio 1.3 (1.1-1.8); Alkaline Phosphatase 51 U/L (38-126); Anion Gap 13.6 mEq/L (5-15); Aspartate Amino Transferase 43 U/L (17-59); Bilirubin,Total 0.6 mg/dl (0.2-1.3); Blood Urea Nitrogen 12 mg/dl (9-20); Calcium 8.5 mg/dl (8.4-10.2); Carbon Dioxide 26 mmol/L (22.0-30.0); Creatinine Clearance Estimated 153 mL/min (50-200); Creatinine,Serum 0.70 mg/dl (0.66-1.25); Estimated Glomerular Filt Rate 117 ml/min (>60); GFR (African American) 142 ML/MIN (>60); Globulin 3.0 g/dL (1.3-3.2); Glucose 134 mg/dl (74-100); Total Protein,Serum 7.0 g/dl (6.3-8.2)
[2025-06-01 14:56] LABS: Troponin I 0.02 ng/ml (0.00-0.034)
--- NOTE | 2025-06-01 15:09 | ED_ITS ---
Discharge Plan Disposition Patient Disposition: Home, Self-Care Condition: Good Prescriptions Prescriptions: New azithromycin 500 mg tablet 500 mg PO DAILY 5 Days Qty: 5 0RF Rx Instructions: start on day 2 of therapy prednisone 20 mg tablet 40 mg PO DAILY 5 Days Qty: 10 0RF No Action guaifenesin [Mucinex] 1,200 mg tablet extended release 12hr 1,200 mg PO Q12H PRN (Reason: cough/congestion) Qty: 20 0RF Referrals Follow up/Referrals: Silvia Hughes MD [Physician, Pulmonology] - See instructions Trevor Hernandez MD [Primary Care Provider, Family Practice] - See instructions Activity Restrictions/Add. Instructions Additional Instructions/Restrictions: Return to the emergency department any worsening signs or symptoms, please take your steroids and your antibiotics as prescribed, please follow-up with the lung doctor, please follow-up with your PCP. Clinical Impressions Clinical Impression: COPD exacerbation Instructions Patient Instructions: Chronic Obstructive Pulmonary Disease, DI for Shortness of Breath Print Language Print Language: [place] Citizen Discharge ED Provider: Michael Case General Chief Complaint: Shortness of Breath/Dyspnea Stated Complaint: chest pain Time Seen by Provider: 06/01/25 14:34 Mode of Arrival: Ambulatory Source of Information: Patient Description of Symptoms (Recalled from ER Triage Doc. by RN): PT REPORTS WORSENING SHORTNESS OF BREATH SINCE THURSDAY. REPORTS CHEST AND RIB PAIN History of Present Illness HPI narrative: 55-year-old male presents to the emergency department with 4-day history of shortness of breath, with productive cough, denies any fever or chills, denies any overt chest pain at this time, but has had some episodes of what sounds like pleuritic chest pain worse with coughing , patient denies any nausea vomiting constipation diarrhea no urinary type symptomatology, no abdominal pain, patient has no other real relevant past medical history, takes no medications at home, he is a current everyday tobacco user, however he states that he quit on Thursday , denies any drug use with the exception of occasional marijuana use, former alcohol use, dated patient history of what sounds like essential tremor, cervical spondylosis otherwise no real relevant past medical history. Related Data Previous Rx's ?Medication ?Instructions ?Recorded guaifenesin 1,200 mg tablet, 1,200 mg PO Q12H PRN 01/22 05/16 extended release 12 hr (Mucinex) cough/congestion #20 tabs azithromycin 500 mg tablet 500 mg PO DAILY 5 days #5 t abs 06/01/25 prednisone 20 mg tablet 40 mg (2 x 20 mg) PO DAILY 5 days 06/01/25 #10 tabs Allergies Allergy/AdvReac Type Severity Reaction Status Date / Time No Known Allergies Allergy Verified 02/16/24 18:49 [facility] Disclaimer: The information contained in this section may have been updated after the patient was seen, as this information can be updated by other users. Social History Smoking Status: Current every day smoker tobacco type: cigarettes packs per day: 1 second hand exposure: Yes alcohol intake: never substance use type: marijuana current occupational status: other Travel in the last 8 weeks?: None household members: friend(s) housing: house caffeine: Yes Have you lived/traveled outside [place] in past 30 days?: No Contact w/someone who lives/traveled outside US past 30 days?: No Exposure to someone with infectious disease in past 14 days?: No Do you have a fever (greater than 100.4 F or 38 C)?: No Have you tested positive for COVID-19?: No Exposed to someone with COVID-19 in past 14 days?: No Do you have a sore throat?: No Do you have a cough?: No Do you have any weakness?: No Do you have any diarrhea?: No Are you experiencing any unusual bleeding?: No Do you have any muscle aches/pain?: No Do you have any abdominal pain?: No Are you experiencing loss of taste or smell?: No Other Medical History Have you received the Flu Vaccine for this season: No Have you received the Pneumonia Vaccine: No ROS Obtained: Yes All systems reviewed & no additional complaints except as documented Physical Exam General General appearance: alert and in no apparent distress Head Head exam: atraumatic and normocephalic Eye Eye exam: Present PERRL and EOMI ENT ENT exam: Present mucous membranes moist Neck Neck exam: Present normal inspection Chest Chest inspection: Present normal inspection and symmetric chest wall rise Respiratory Respiratory exam: Present wheezes and other (Mild diffuse wheezes noted throughout bilateral lung field); Absent normal lung sounds bilaterally or respiratory distress Cardiovascular Cardiovascular exam: Present regular rate and normal rhythm Abdominal Exam Abdominal exam: Present soft; Absent tenderness Extremities Exam Extremities exam: Present normal inspection Neurological Exam Neurological exam: Present alert and oriented X3 Psychiatric Psychiatric exam: Present normal affect Skin Skin exam: Present warm and dry HEART Score HEART Score HEART Score assessment performed?: Yes History (anamnesis): Slightly suspicious ECG: Normal Age: 45-65 years Risk factors: 1-2 risk factors Troponin: </= normal limit HEART Score: 2 Critical Care Critical Care Time Critical Care Time: No Medical Decision Making Medical Records Medical records reviewed: Yes I reviewed the patient's medical records. Andrés Inquiry Pt receiving controlled substance: No Andrés was queried for this patient: No Vital Signs Vital Signs: 06/01/25 13:49 Temperature 98.2 F Temperature Source Oral Pulse Rate [Radial] 69 Respiratory Rate 18 Blood Pressure [Left Arm] 147/87 H Blood Pressure Mean [Left Arm] 107 Blood Pressure Source [Left Arm] Automatic Cuff Blood Pressure Position [Left Arm] Sitting 02 Sat by Pulse Oximetry 97 Oxygen Delivery Method Room Air Lab Data Lab results reviewed: Yes I reviewed the patient's lab results. Labs: Lab Results 06/01/25 13:57: WBC 8.3, RBC 5.74, Hgb 16.4, Hct 49.2, MCV 85.7, MCH 28.6, MCHC 33.3, RDW 14.5, Plt Count 282, MPV 8.9, Neut % (Auto) 67.2, Lymph % (Auto) 23.4, [place] % (Auto) 6.4, Eos % (Auto) 1.4, Baso % (Auto) 0.8, Neut # (Auto) 5.6, Lymph # (Auto) 2.0, [place] # (Auto) 0.5, Eos # (Auto) 0.1, Baso # (Auto) 0.1, D-Dimer 0.61 H, Sodium 136, Potassium 4.6, Chloride 101, Carbon Dioxide 26, Anion Gap 13.6, BUN 12, Creatinine 0.70, Estimated Creat Clear 153, Estimated GFR 117, Est GFR ( Amer) 142, Glucose 134 H, Calcium 8.5, Total Bilirubin 0.6, AST 43, ALT 42, Alkaline Phosphatase 51, Troponin I 0.02, NT-Pro-B Natriuret Pep 123, Total Protein 7.0, Albumin 4.0, Globulin 3.0, Albumin/Globulin Ratio 1.3, HCV Ab YVON w/Rflx PCR Qn Negative, HIV Ag/Ab Combo Qual Negative 06/01/25 13:57 06/01/25 13:57 Response Orders (Tests/Meds): ED MEDICATIONS Discontinued Medications Generic Name Dose Route Start Last Admin Trade Name Freq PRN Reason Stop Dose Admin Albuterol/Ipratropium 6 ml 06/01/25 15:19 06/01/25 16:01 Ipratropium/Albuterol 3 Ml Neb IH 06/01/25 15:20 6 ml ONCE ONE Administration Methylprednisolone Sodium Succinate 125 mg 06/01/25 15:20 06/01/25 16:02 Methylprednisolone Sod Succ 125mg Vial IV 06/01/25 15:21 125 mg ONCE ONE Administration ORDERS Category Date Time Status XR chest portable Stat Exams 06/01/25 14:24 Completed Complete Blood Count Auto Diff Stat Lab 06/01/25 13:57 Completed Comprehensive Metabolic Panel Stat Lab 06/01/25 13:57 Completed D-Dimer Stat Lab 06/01/25 13:57 Completed HIV Combo Stat Lab 06/01/25 13:57 Completed Hepatitis C Ab Qual. W/ RFX Stat Lab 06/01/25 13:57 Completed NT Pro Brain Natriuretic Pep. Stat Lab 06/01/25 13:57 Completed Troponin I Q3H Lab 06/01/25 17:30 Ordered Troponin I Q3H Lab 06/01/25 20:30 Ordered Troponin I Stat Lab 06/01/25 13:57 Completed MDM Narrative Medical Decision Narrative: 55-year-old male presents the emergency department with shortness of breath, pleuritic type chest pain for the last several days, differential diagnose include but not limited to, new onset/COPD exacerbation, pneumonia, acute bronchitis, PE, ACS, electrolyte disturbance, cardiac arrhythmia, costochondritis, new onset CHF exacerbation among others. Will obtain CBC, CMP, CXR, EKG, troponin, proBNP, D-dimer, will give 6 mm DuoNeb, as well as 125 mg IV methylprednisone. I discussed this patient's case with attending physician CBC is unremarkable CMP is unremarkable, troponin within normal limits D-dimer is minimally elevated at 0.61, proBNP within normal limits. According to age-adjusted D-dimer criteria, VTE is unlikely. Utilizing years algorithm, PE is excluded. I reviewed the patient's chest x-ray along with corresponding radiologic report, no acute cardiopulmonary process.
[2025-06-01 15:34] LABS: Hepatitis C Ab Qual. W/ RFX NEGATIVE (Negative)
[2025-06-01 15:53] LABS: NT Pro Brain Natriuretic Pep. 123 pg/mL (0-125)
[2025-06-01 15:58] LABS: D-Dimer 0.61 ug/mL (0.0-0.5)
[2025-06-01] MEDS: IPRATROPIUM/ALBUTEROL 3 ML NEB 6 ML IH (16:01)
[2025-06-01] MEDS: METHYLPREDNISOLONE SOD SUCC 125MG VIAL 125 MG IV (16:02)
[2025-06-01 16:30] VITALS: BP 144/80; PULSE 74; RESP 18; TEMP 36.7; O2SAT 98
== END 2025-06-01 16:30 | disposition home or self-care (01) ==
PROVIDERS: Physician Assistant; Emergency Provider Student in an Organized Health Care Education/Training Program; PCP Family Medicine
DX: J44.1 Chronic obstructive pulmonary disease with (acute) exacerbation (principal); F17.210 Nicotine dependence, cigarettes, uncomplicated
CPT/HCPCS: 71045; 80053; 83880; 84484; 85025; 85378; 86803; 87389; 93005; 96374; 99284; J2919

== ENCOUNTER 2025-07-06 12:48 | Outpatient (CLI) | payer OTHER, SELFPAY ==
--- NOTE | 2025-07-06 | CA_ITS ---
APPROVED REPORT Exam: Pharmacologic Technologist: Carolyn Mujica Ht: 5 ft 10 in Wt: 200 lbs BSA: 2.09 m2 HR: 73 bpm BP: 133/89 mmHg Rhythm: SR, RBBB Medical History Cardiac Risk Factors: Smoking Stress Test Details HR Resting HR: 73 bpm Max Heart Rate (APMHR): 165 bpm Target HR (85% APMHR): 140 bpm Recovery HR: 85 bpm BP Resting BP: 133.0/89.0 mmHg Recovery BP: 135.0/84.0 mmHg ECG Resting ECG: SR, RBBB Stress ECG Conclusion Switched to lexiscan due to dyspnea. During lexiscan pt experinced dyspnea. No arrhythmias noted. Less than 1.5mm ST changes. Non diagnostic lexiscan Electronically signed by : Shelbie Alan MD 07/07/2025 13:28:55
--- NOTE | 2025-07-06 13:00 | NM_ITS ---
APPROVED REPORT Exam: Nuclear Stress Test Indication: Chest pain, SOB, Tobacco use, Family history Patient Location: Outpatient Stress Tech: Carolyn LUCAS Tech:Domenica Shelley, ARRT, RT (R)(N) Ht: 5 ft 11 in Wt: 200 lbs HR: 73 bpm BP: 133/89 mmHg BSA: 2.11 m2 TID: 1.05 BMI: 27.8 History: Chest pain, SOB, Tobacco use, Family history Procedure: Patient received 0.4 mg of intravenous Lexiscan, resting heart rate 73 bpm, resting blood pressure 133/89 mmHg, with Lexiscan maximum heart rate achieved was 95 bpm which is % of the maximum predicted heart rate and blood pressure was 134/73 mmHg. With Lexiscan, patient denied any complaint of chest pain. Cardiac Stress and Resting SPECT Images: Cardiac Stress and Resting SPECT images were obtained using technetium 99m Myoview 32.5 mCi stress and 10.21 mCi at rest. Resting and stress imaging in supine and prone positions demonstrate a medium-sized, moderate, partially reversible perfusion defect in the basal to mid inferior, inferoseptal, and septal LV charles. Gated imaging demonstrates normal global LV systolic function. LVEF is calculated at 56%. Conclusion: Medium-sized, moderate, partially reversible perfusion defect in the basal to mid inferior, inferoseptal, and septal LV charles. Findings are suggestive of partial reversible ischemia. Gated imaging demonstrates normal global LV systolic function. LVEF is calculated at 56%. Electronically signed by : Shelbie Alan MD 07/07/2025 13:23:05
[2025-07-06] MEDS: SODIUM CHLORIDE 0.9% 10ML SYR (RAD ONLY) 10 ML IV ×2 (15:30)
[2025-07-06] MEDS: ISOTOPE MYOVIEW (PER STUDY) 1 DOSE IV (15:30)
== END 2025-07-06 23:59 | disposition home or self-care (01) ==
LOC: RAD 12:49
PROVIDERS: PCP Family Medicine; Visit Provider Family Medicine
DX: I45.10 Unspecified right bundle-branch block (principal); R94.39 Abnormal result of other cardiovascular function study; R94.31 Abnormal electrocardiogram [ECG] [EKG]; R07.9 Chest pain, unspecified; R06.02 Shortness of breath; Z72.0 Tobacco use
CPT/HCPCS: 78452; 93016; 93017; 93018; A9502; J2785

== ENCOUNTER 2025-07-11 13:03 | Outpatient (CLI) | payer OTHER, SELFPAY ==
--- NOTE | 2025-07-11 13:00 | CT_ITS ---
FINAL REPORT TECHNIQUE: Axial CT images of the chest were obtained without contrast. Low-dose protocol was utilized. This study was performed with techniques to keep radiation doses as low as reasonably achievable (ALARA). Individualized dose reduction techniques using automated exposure control or adjustment of mA and/or kV according to the patient's size were employed. CLINICAL HISTORY: lung cancer screening current smoker 1ppd x42 years COMPARISON: None FINDINGS: CT CHEST WITHOUT, LOW DOSE SCREENING CT Di Vol: 2.90 mGy DLP: 103.42 mGy*cm There are few small calcified right hilar and subcarinal lymph nodes. The heart size is normal. There is no pleural or pericardial effusion. The lung windows show no suspicious mass or nodule. There is a calcified granuloma in the right lower lobe of the lung. Moderately advanced changes of centrilobular emphysema is seen in the upper lobes. Limited images of the upper abdomen demonstrate no acute findings. IMPRESSION: No suspicious pulmonary mass or nodules. Modifier S: Centrilobular emphysema. LR Category 1S: 12 month follow-up low-dose chest CT is recommended per Fleischner criteria. Reviewed, Interpreted and Dictated by Abilio Bettencourt MD Transcribed by Lilly Singleton Authenticated and . [facility]
== END 2025-07-11 23:59 | disposition home or self-care (01) ==
LOC: RAD 13:03
PROVIDERS: PCP Family Medicine; Visit Provider Family Medicine
DX: J43.2 Centrilobular emphysema (principal); Z12.2 Encounter for screening for malignant neoplasm of respiratory organs; Z87.891 Personal history of nicotine dependence
CPT/HCPCS: 71271

== ENCOUNTER 2025-07-13 11:41 | Outpatient (CLI) | payer OTHER, SELFPAY ==
[2025-07-13 13:36] LABS: Alanine Aminotransferase 21 U/L (12-78); Albumin Level 3.9 g/dl (3.5-5.0); Alkaline Phosphatase 66 U/L (38-126); Aspartate Amino Transferase 24 U/L (17-59); Bilirubin,Direct 0.1 mg/dl (0.0-0.4); Bilirubin,Indirect 0.2 mg/dL (0.0-0.9); Bilirubin,Total 0.3 mg/dl (0.2-1.3); Bilirubin,Unconjugated 0.1 mg/dL (0.0-1.1); Cholesterol 95 mg/dl (140-200); HDL Cholesterol 43 mg/dl (40-60); Total Protein,Serum 6.2 g/dl (6.3-8.2); Triglycerides 95 mg/dl (30-150)
== END 2025-07-13 23:59 | disposition home or self-care (01) ==
LOC: LAB 11:42
PROVIDERS: PCP Family Medicine; Visit Provider Physician Assistant
DX: I20.89 Other forms of angina pectoris (principal); R94.39 Abnormal result of other cardiovascular function study; R94.31 Abnormal electrocardiogram [ECG] [EKG]; I45.10 Unspecified right bundle-branch block
CPT/HCPCS: 36415; 80061; 80076

== ENCOUNTER 2025-07-21 13:32 | Outpatient (CLI) | payer OTHER, SELFPAY ==
--- NOTE | 2025-07-21 13:45 | CA_ITS ---
APPROVED REPORT EXAM: Comprehensive 2D, Doppler, and color-flow Echocardiogram Administrative Resident: Aline Cerda RT(R) Ht: 5 ft 11 in Wt: 207lbs BSA: 2.14 BP: 158/80 mmHg Indications: chest pain, dyspnea 2D Dimensions LA Volume 18.50 mL LA Volume Index 8.64 mL/m2 (M/F) 16-34 EF AP4 62.70 % GL Strain -23.7 % M-Mode Dimensions RVDd 2.54 cm (0.9-2.6) LA Diam 2.71 cm (1.9-4.0) LVDd 4.97 cm (3.5-5.7) LVDs 3.80 cm (3.5-5.7) IVSd 0.61 cm (0.6-1.1) PWd 0.68 cm (0.6-1.1) EF (Teich) 46.80% FS 23.50% EDV (Teich) 116.60 mL ESV (Teich) 62.00 mL LV Diastology E Decel Time 150 (160-240 msec) E/A Ratio 0.9 Mitral Valve MV E Max Quincy. 72.0 (40-130 cm/s) MV A Velocity 79.0 (40-130 cm/s) E/A Ratio 0.91 MV PHT 44.0 ms Left Ventricle The left ventricle is normal size. Left ventricular systolic function is normal. The left ventricular ejection fraction is within the normal range. There is normal left ventricular wall thickness. There is normal LV segmental wall motion. The left ventricular diastolic function is normal. LVEF is 55% Right Ventricle The right ventricle is normal size. The right ventricular systolic function is normal. Atria The left atrium size is normal. The right atrium size is normal. There is no color Doppler evidence of interatrial shunt. Aortic Valve The aortic valve opens well. There is no hemodynamically significant aortic valvular stenosis. No aortic regurgitation is present. Mitral Valve The mitral valve is normal in structure. No evidence of mitral valve stenosis. Trace mitral regurgitation is present. Tricuspid Valve The tricuspid valve leaflets are thin and pliable. Trace tricuspid regurgitation. There is insufficient TR jet to estimate RVSP. Pulmonic Valve The pulmonary valve is grossly normal in structure. Trace pulmonic valve regurgitation is present. Great Vessels The aortic root is normal in size. IVC is normal in size and collapses >50% with inspiration. Pericardium There is no pericardial effusion. Other Information Study Quality: Fair Conclusion Normal biventricular systolic function. No significant valvular stenosis or regurgitation. Electronically signed by : Shelbie Alan MD 07/22/2025 22:59:32
== END 2025-07-21 23:59 | disposition home or self-care (01) ==
LOC: RT 13:33
PROVIDERS: PCP Family Medicine; Visit Provider Physician Assistant
DX: I20.89 Other forms of angina pectoris (principal); I45.10 Unspecified right bundle-branch block; R94.39 Abnormal result of other cardiovascular function study; R94.31 Abnormal electrocardiogram [ECG] [EKG]
CPT/HCPCS: 93306

== ENCOUNTER 2025-08-24 11:38 | Outpatient (CLI) | payer OTHER, SELFPAY ==
[2025-08-24 12:09] VITALS: BMI 28.1
[2025-08-24 12:23] VITALS: BP 116/88; PULSE 64; RESP 18; TEMP 36.3; O2SAT 97
[2025-08-24 12:36] LABS: Anion Gap 11.4 mEq/L (5-15); Blood Urea Nitrogen 13 mg/dl (9-20); Calcium 8.6 mg/dl (8.4-10.2); Carbon Dioxide 27 mmol/L (22.0-30.0); Chloride 103 mmol/L (98-107); Creatinine Clearance Estimated 120 mL/min (50-200); Creatinine,Serum 0.90 mg/dl (0.66-1.25); Estimated Glomerular Filt Rate 88 ml/min (>60); GFR (African American) 106 ML/MIN (>60); Glucose 100 mg/dl (74-100); Potassium 4.4 mmoL/L (3.5-5.1); Sodium 137 mmol/L (136-145)
--- NOTE | 2025-08-24 13:00 | CT_ITS ---
APPROVED REPORT Vice Principal: CLINICAL INDICATION Chest Pain TECHNIQUE Image Acquisition: A 128 slice MDCT scanner ([employer]) was used for data acquisition. A noncontrast coronary calcium scan was performed. A CT attenuation threshold of 130 Hounsfield units (HU) was used for the detection of calcium in contiguous voxels of 1 sq mm in area to be counted as individual lesions. Bolus tracking in the ascending aorta with a threshold of 180 HU was performed. Immediately afterwards, ECG synchronized cardiac CT was then performed from the cardiac base to apex using retrospective gating with ECG tube current modulation. A total of 85 mL of Isovue 370 mg/mL contrast medium was administered at 5 mL/sec followed by a saline flush using a biphasic injection protocol. A tube voltage of 120 KVp was used. The patient received no medications prior to the cardiac CT. The average heart rate at the time of acquisition was 55 bpm and regular. Image Reconstruction Transaxial images were reconstructed at 0.67 mm slide thickness. Data was reviewed interactively on an advanced workstation capable of 2 and 3-dimensional displays in all conventional reconstruction formats, including multiplanar reformations, maximum intensity projections, curved multiplanar reformations, and volume rendered reconstructions. When applicable, selected routine images describing the relevant coronary anatomy and pathology were saved and sent to PACS. Complications None Technical Quality Overall image quality was good. Coronary artery opacification was adequate. Total DLP (Dose-Length Product) is 1820.5 mGy-cm. The reported value represents the total of one or more individual components during the CT acquisition of this date and at this time, and as such, the same value may appear in more than one CT report depending on the interpreting/reporting physicians. COMPARISON None FINDINGS CT Coronary Calcium Scoring LMA (Left Main Artery) = 0 LAD (Left Anterior Descending) = 0 LCX (Left Coronary Circumflex) = 0 RCA (Right Coronary Artery) = 0 Total Calcium Score = 0 using the AJ-130 method. The interpretation of the calcium heart score is based on the following continuum*: 0 = no calcified plaque detected (risk of coronary artery disease is very low ??? less than 5%) 1-10 = calcium detected in extremely minimal levels (risk of coronary diseases is still low ??? less than 10%) 11-100 = mild levels of plaque detected with certainty (mild or minimal narrowing of heart arteries is likely) 101-400 = definite,at least moderate levels of plaque detected (relatively high risk of a heart attack within 3-5 years) >401-999 = extensive levels of plaque detected (high risk of heart attack, high levels of vascular disease are present, high likelihood of at least one significant coronary narrowing) *The calcium heart score quantifies the burden of coronary calcification/plaque in the coronary arteries. The calcium heart score is not able to evaluate the presence or burden of non-calcified (i.e. soft) plaque. There is no identifiable calcification in the aortic valve, mitral annulus or mitral valve, pericardium, or myocardium. Coronary CT Angiography The coronary arterial system is left dominant. Quantitative Stenosis Grading: Left Main (LM): The left main originates normally from the left sinus of Valsalva. The LM bifurcates into the left anterior descending artery and left circumflex artery. The LM is patent with no evidence of atherosclerosis. Left Anterior Descending (LAD) and Diagonal Branches: The LAD gives off 3 diagonal branch(es). The LAD and its branches are patent with no evidence of atherosclerosis. There is no evidence of LAD-myocardial bridge. Left Circumflex (LCX) and Obtuse Marginals (OM): The LCX gives off 1 Obtuse Marginal (OM) branch(es). The LCX and its branches are patent with no evidence of atherosclerosis. Right Coronary Artery (RCA): The RCA originates normally from the right sinus of Valsalva. The RCA gives off a posterior descending artery (PDA) and posterolateral (PL) branches. The RCA and its branches are patent with no evidence of atherosclerosis. Non-Coronary Cardiac Findings: Analysis of the left ventricular (LV) structure and function was performed after 3-D reconstruction of the LV from axial images, with user-corrected automatic contouring for assessment of LV volumes and user-defined reconstruction from oblique planes for measurement of 3-D cardiac structure and function. -The left ventricle systolic function is normal. -There is no left atrial appendage filling defect. Two right pulmonary veins and two left pulmonary veins drain normally into the left atrium. -No pericardial thickening or calcification. -Central and branch pulmonary arteries in the [id number] are unremarkable. -Thoracic aorta within the visualized thoracic aortic-branches in the [id number] is unremarkable. Extracardiac Structures No significant extra-cardiac findings. Note, however, that this study is focused on the cardiac findings. IMPRESSION -Absence of coronary calcification with an Agatston score = 0 using the AJ-130 method. -No evidence of significant flow-limiting atherosclerosis of the coronary arteries. -CAD-RADS 0. Management recommendations per ACC/AHA guidelines*, as clinically appropriate. *Recommendations: CAD RADS 0: Reassurance. Consider non-atherosclerotic causes of chest pain. CAD RADS 1: Consider non-atherosclerotic causes of chest pain. Consider preventive therapy and risk factor modification. CAD RADS 2: Consider non-atherosclerotic causes of chest pain. Consider preventive therapy and risk factor modification, particularly for patients with nonobstructive plaque in multiple segments. CAD RADS 3: Consider further functional testing. Consider symptom-guided anti-ischemic and preventive pharmacotherapy as well as risk factor modification per published guideline statements. CAD RADS 4A: Consider further functional testing or invasive coronary angiography with revascularization per published guideline statements. Consider symptom-guided anti-ischemic and preventive pharmacotherapy as well as risk factor modification per published guideline statements. CAD RADS 4B: Invasive coronary angiography recommended with revascularization per published guideline statements. Consider symptom-guided anti-ischemic and preventive pharmacotherapy as well as risk factor modification per published guideline statements. CAD RADS 5: Consider invasive angiography and/or viability assessment with revascularization per published guideline statements. Consider symptom-guided anti-ischemic and preventive pharmacotherapy as well as risk factor modification per published guideline statements. CRITICAL RESULT None COMMUNICATION Per this written report The coronary and cardiac findings of this CCTA were reviewed, reported, and signed by Wellington Alan MD ([facility]) Conclusion Electronically signed by : Shelbie Alan MD 08/26/2025 00:24:33
[2025-08-24 13:25] VITALS: BP 134/83; PULSE 58; RESP 16; TEMP 36.3; O2SAT 97
[2025-08-24] MEDS: 0.9 % SODIUM CHLORIDE 50 ML VIAL IV ×2 (13:25→13:41)
[2025-08-24] MEDS: IOPAMIDOL-370 (76%);100ML BOTTLE 85 ML IV (13:25)
[2025-08-24] MEDS: SODIUM CHLORIDE 0.9% 10ML SYR (RAD ONLY) 10 ML IV ×2 (13:25→13:41)
[2025-08-24 13:35] VITALS: BP 119/70; PULSE 56; RESP 16; TEMP 36.3; O2SAT 97
[2025-08-24] MEDS: IOPAMIDOL-370 (76%);100ML BOTTLE 80 ML IV (13:41)
[2025-08-24 13:47] VITALS: BP 139/80; PULSE 64; RESP 16; TEMP 36.3; O2SAT 99
== END 2025-08-24 13:50 | disposition home or self-care (01) ==
PROVIDERS: PCP Family Medicine; Visit Provider Physician Assistant
DX: I20.89 Other forms of angina pectoris (principal)
CPT/HCPCS: 75574; 80048; Q9967